=== PATIENT | male | born 1940 | race Caucasian/White ===

== ENCOUNTER 2021-03-29 15:15 | Observation (INO) ==
[2021-03-29] MEDS ORDERED: NS 0.9% 1000 ml BAG 1,000 ML IV ONE (15:46)
[2021-03-29] MEDS ORDERED: Lidocaine 1% w EPI 1:100,000 MDV 20 ML VIAL ONE (15:51)
[2021-03-29] MEDS ORDERED: Oxymetazoline 0.05% NASAL SPR 15 ML BTL ONE (15:51)
[2021-03-29] MEDS ORDERED: Oxymetazoline 0.05% NASAL SPR 15 ML BTL RIGHT NARE ONE (16:06)
[2021-03-29] MEDS ORDERED: Lidocaine 1% w EPI 1:100,000 MDV 20 ML VIAL INJ ONE (16:06)
[2021-03-29 16:23] LABS: ABS Eosinophils 0.1 10^3/ul (0-0.6); ABS Lymphocytes 0.9 10^3/ul (1.0-4.8); ABS Monocytes 0.6 10^3/ul (0-0.8); ABS Neutrophils 6.7 10^3/ul (1.5-7.7); Hematocrit 32 % (42-52); Hemoglobin 11.4 g/dL (14.0-18.0); Lymphocyte % 11.2 %; Mean Corpuscular HGB Conc 36 g/dL (31-36); Mean Corpuscular Hemoglobin 33 pg (27-31); Mean Corpuscular Volume 93 fL (80-94); Mean Platelet Volume 8.8 fL (7.4-10.4); Platelet Count 120 10^3/uL (150-450); Red Blood Count 3.45 10^6 /uL (4.18-5.48); Red Cell Distribution Width 14 % (10-15); White Blood Count 8.3 10^3/uL (3.5-10.8)
[2021-03-29 16:32] LABS: INR 1.39 (0.86-1.15)
[2021-03-29] MEDS ORDERED: Metoprolol Tartrate 5 mg VIAL 5 ml VIAL (1 mg/ml) IV ONE ×2 (16:45→17:53)
[2021-03-29 16:47] LABS: Albumin 3.7 g/dL (3.2-5.2); Albumin/Globulin Ratio 1.8 (1-3); Calcium 7.8 mg/dL (8.6-10.3); Globulin 2.1 g/dL (2-4); Magnesium 1.3 mg/dL (1.9-2.7); Potassium 4.5 mmol/L (3.5-5.0); Total Bilirubin 0.4 mg/dL (0.2-1.0); Total Protein 5.8 g/dL (6.4-8.9); eGFR CKD-EPI 47.8 (>60)
[2021-03-29] MEDS ORDERED: Magnesium Sulfate 2 gm BAG 2 GM/50 ML BAG IVPB ONE (16:52)
[2021-03-29] MEDS ORDERED: Diltiazem IV push/loading dose 5 MG/ML 5 ML vial (25 mg) IV SLOW PU ONE (19:17)
[2021-03-29 23:01] LABS: Troponin I 0.02 ng/mL (<0.03)
[2021-03-30 05:52] LABS: ABS Eosinophils 0.1 10^3/ul (0-0.6); ABS Monocytes 0.8 10^3/ul (0-0.8); ABS Neutrophils 4.9 10^3/ul (1.5-7.7); Eosinophil % 1.3 %; Hematocrit 29 % (42-52); Hemoglobin 10.1 g/dL (14.0-18.0); Lymphocyte % 25.8 %; Mean Corpuscular HGB Conc 35 g/dL (31-36); Mean Corpuscular Hemoglobin 32 pg (27-31); Mean Corpuscular Volume 94 fL (80-94); Mean Platelet Volume 9.3 fL (7.4-10.4); Platelet Count 118 10^3/uL (150-450); Red Blood Count 3.13 10^6 /uL (4.18-5.48); Red Cell Distribution Width 14 % (10-15); White Blood Count 7.8 10^3/uL (3.5-10.8)
[2021-03-30 06:05] LABS: Potassium 4.3 mmol/L (3.5-5.0); eGFR CKD-EPI 54.4 (>60)
[2021-03-30 06:26] LABS: Ferritin 39.4 ng/mL (24-336)
[2021-03-30 06:29] LABS: Folate 6.05 ng/mL (5.90-24.80)
[2021-03-30 08:43] LABS: Magnesium 1.7 mg/dL (1.9-2.7)
[2021-03-30] MEDS ORDERED: Cyanocobalamin INJ 1,000 MCG/ML VIAL 1 ML VIAL IM ONE (09:00)
[2021-03-30] MEDS ORDERED: Magnesium Sulfate IV 3 GM in NS 0.9% 100 ml BAG 100 ML IVPB ONE (10:00)
[2021-03-30 14:48] VITALS: BP 152/92
[2021-03-31 15:02] LABS: % Iron Saturation 85 % (14 - 50); Total Iron Binding Capacity 250 mcg/dL (250 - 400)
== END 2021-03-30 15:55 | disposition short-term general hospital (02) ==
LOC: EDBD → ED 15:15 → EDHOLD 15:15 → SUATTDRO 20:53 → MEDTELE 03-30 00:01
PROVIDERS: ADMIT Hospitalist; ATTEND Internal Medicine